=== PATIENT | female | born 1965 | race Caucasian/White ===

== ENCOUNTER 2020-12-25 16:28 | Emergency (ER) | payer MEDICARE, OTHER ==
[~2020-12-25 16:28] MED LIST: ALLOPURINOL100 MG PO; BACLOFEN 10MG T10 MG PO; COLESTID1 GM PO; DESVENLAFAXINE100 M3 PO; ELAVIL50 MG PO; ESTRADIOL0.5 MG PO; HCTZ25 MG PO; HYDROCODONE-APA1 TAB PO; NAPROSYN500 MG PO; NEURONTIN600 MG PO; OMEPRAZOLE40 MG PO; PERCOCET 5-3251 EACH PO; RANITIDINE HCL150 M1 PO; SYNTHROID25 MCG PO; ZESTRIL40 MG PO
[2020-12-25 16:58] LABS: BASOPHIL 0.5 % (0-2); EOSINOPHIL 1.8 % (0-5); HCT 38.5 % (37.0-47.0); HGB 13.1 g/dl (12.5-16.0); LYMPHOCYTE 16.8 % (15-48); MCH 31.1 pg (25.0-31.0); MCV 91.4 fL (78.0-100.0); NEUTROPHIL 74.6 % (41-80); NRBC 0; PLT 197 K/uL (150-400); RBC 4.21 M/uL (4.20-5.40); RDW 13.2 % (11.5-14.0); WBC 3.8 K/uL (4.0-10.5)
[2020-12-25 17:03] LABS: INR 0.96 (0.9-1.2); PROTHROMBIN TIME 12.2 SECONDS (11.8-13.4); PTT 28.9 SECONDS (24.4-34.7)
[2020-12-25 17:10] LABS: ALBUMIN 3.7 g/dL (3.4-5.0); BILIRUBIN - TOTAL 0.2 mg/dL (0.2-1.0); BUN/CREAT RATIO (CALC) 19.5 RATIO; CREATININE 0.77 mg/dL (0.51-0.95); GLOBULIN (CALCULATION) 3.7 g/dL; POTASSIUM 3.6 mmol/L (3.5-5.1); TOTAL PROTEIN 7.4 g/dL (6.4-8.2)
[2020-12-25] MEDS ORDERED: NITROQUIK SL0.4 MG SL (18:06)
== END 2020-12-25 18:26 | disposition home or self-care (01) ==
LOC: FER 16:28
PROVIDERS: Emergency Medicine
DX: R07.89 Other chest pain (principal); I10 Essential (primary) hypertension; F17.200 Nicotine dependence, unspecified, uncomplicated; Z98.890 Other specified postprocedural states; Z95.9 Presence of cardiac and vascular implant and graft, unspecified
CPT/HCPCS: 36415; 71045; 80053; 84484; 85025; 85610; 85730; 93005

== ENCOUNTER → 2021-03-11 | Day surgery (SDC) | payer MEDICARE, OTHER ==
[~2021-03-11] VITALS: Ht 162.6 cm; Wt 118.4 kg
[~2021-03-11] MED LIST changes: +COREG12.5 MG PO; +HYDROCODON-ACE1 EAC2 PO; +NITROQUIK SL0.4 MG SL; +NORVASC2.5 MG PO; +PRINIVIL10 MG PO; +TIZANIDINE HCL4 MG PO
[2021-03-11 10:12] LABS: HCT 35.2 % (37.0-47.0); HGB 12.1 g/dl (12.5-16.0); MCH 31.4 pg (25.0-31.0); MCHC 34.4 g/dL (32.0-36.0); MCV 91.4 fL (78.0-100.0); MPV 10.7 fL (6.0-9.5); RBC 3.85 M/uL (4.20-5.40); RDW 13.2 % (11.5-14.0); WBC 3.2 K/uL (4.0-10.5)
[2021-03-11 10:24] LABS: BUN/CREAT RATIO (CALC) 18.2 RATIO; CREATININE 0.77 mg/dL (0.51-0.95); POTASSIUM 4.4 mmol/L (3.5-5.1)
== END | disposition home or self-care (01) ==
LOC: FAS 09:00
PROVIDERS: Legal Medicine
DX: M65.342 Trigger finger, left ring finger (principal); I10 Essential (primary) hypertension; K21.9 Gastro-esophageal reflux disease without esophagitis; M19.90 Unspecified osteoarthritis, unspecified site; E03.9 Hypothyroidism, unspecified; F17.200 Nicotine dependence, unspecified, uncomplicated; Z79.899 Other long term (current) drug therapy; Z96.652 Presence of left artificial knee joint
CPT/HCPCS: 36415; 80048; J0690; J1100; J1885; J2250; J2405; J2704; J2795; J3010; J7120

== ENCOUNTER 2021-05-06 09:55 | Emergency (ER) | payer MEDICARE, OTHER ==
[2021-05-06 13:22] LABS: BASOPHIL 0.8 % (0-2); EOSINOPHIL 3.7 % (0-5); HGB 10.9 g/dl (12.5-16.0); LYMPHOCYTE 28.2 % (15-48); MCH 32.6 pg (25.0-31.0); MCV 98.8 fL (78.0-100.0); MONOCYTE 9.6 % (0-12); NEUTROPHIL 57.3 % (41-80); NRBC 0; PLT 178 K/uL (150-400); RBC 3.34 M/uL (4.20-5.40); RDW 14.2 % (11.5-14.0); WBC 4.9 K/uL (4.0-10.5)
[2021-05-06 13:47] LABS: BUN/CREAT RATIO (CALC) 14.6 RATIO; CREATININE 2.47 mg/dL (0.51-0.95); POTASSIUM 4.9 mmol/L (3.5-5.1)
[2021-05-06 16:53] LABS: LACTIC ACID 0.8 mmol/L (0.4-1.9)
[2021-05-06 18:33] LABS: BILIRUBIN NEGATIVE (NEGATIVE); BLOOD 1+ Ery/uL (NEGATIVE); CLARITY CLEAR (CLEAR); COLOR YELLOW (YELLOW); GLUCOSE (U) NORMAL (NORMAL); LEUKOCYTES NEGATIVE Leu/uL (NEGATIVE); NITRITE NEGATIVE (NEGATIVE); PROTEIN NEGATIVE (NEGATIVE); SPECIFIC GRAVITY 1.025 (1.001-1.030); UROBILINOGEN 0.2 mg/dL (0.2-1.0); pH 5.5 (5.0-9.0)
[2021-05-06 18:45] LABS: BACTERIA 2+; ECSTASY (MDMA) NEGATIVE (NEGATIVE); MARIJUANA (THC) NEGATIVE (NEGATIVE)
[2021-05-06 18:46] LABS: AMPHETAMINES NEGATIVE (NEGATIVE); BARBITURATES NEGATIVE (NEGATIVE); METHADONE NEGATIVE (NEGATIVE); OPIATES POSITIVE (NEGATIVE); OXYCODONE POSITIVE (NEGATIVE)
[2021-05-06 20:33] LABS: BUN/CREAT RATIO (CALC) 19.2 RATIO; CREATININE 1.93 mg/dL (0.51-0.95)
== END 2021-05-06 21:59 | disposition home or self-care (01) ==
LOC: FER 09:55
PROVIDERS: Nurse Practitioner Family
DX: N17.9 Acute kidney failure, unspecified (principal); S80.211A Abrasion, right knee, initial encounter; M54.50 Low back pain, unspecified; R10.12 Left upper quadrant pain; I95.9 Hypotension, unspecified; F17.210 Nicotine dependence, cigarettes, uncomplicated; I10 Essential (primary) hypertension; Z20.822 Contact with and (suspected) exposure to COVID-19; Z79.899 Other long term (current) drug therapy; W01.0XXA Fall on same level from slipping, tripping and stumbling without subsequent striking against object, initial encounter; Y92.009 Unspecified place in unspecified non-institutional (private) residence as the place of occurrence of the external cause
CPT/HCPCS: 36415; 72131; 73560; 80048; 80305; 81001; 83605; 83880; 84145; 84484; 85025; 93005; J7030; U0002